=== PATIENT | male | born 1990 ===

== ENCOUNTER 2016-05-11 18:49 | Inpatient (IN) | payer MEDICAID, OTHER ==
[2016-05-11 19:43] LABS: BASO % 0.6 % (0.0-2.0); EOS # 0.1 K/uL (0.0-0.7); HEMATOCRIT 39.8 % (35.0-51.0); LYMPH # 2.3 K/uL (1.0-4.3); LYMPH % 31.4 % (20.0-40.0); MEAN CELL VOLUME 72.9 fL (80.0-94.0); MEAN CORPUSCULAR HEMOGLOBIN 23.5 pg (27.0-31.0); MEAN CORPUSCULAR HGB CONC 32.2 g/dL (33.0-37.0); MEAN PLATELET VOLUME 8.5 fL (7.2-11.7); MONO # 0.8 K/uL (0.0-0.8); MONO % 11.2 % (0.0-10.0); RED CELL DISTRIBUTION WIDTH 14.3 % (11.5-14.5); WHITE BLOOD COUNT 7.2 K/uL (4.8-10.8)
[2016-05-11 19:45] LABS: RBC URINE < 1 /hpf (0-3); URINE BILIRUBIN NEGATIVE (NEGATIVE); URINE BLOOD NEGATIVE (NEGATIVE); URINE COLOR Yellow (YELLOW); URINE GLUCOSE (UA) NORMAL (Normal); URINE KETONE TRACE mg/dL (NEGATIVE); URINE LEUKOCYTE ESTERASE NEG Leu/uL (Negative); URINE PROTEIN NEGATIVE (NEGATIVE); URINE UROBILINOGEN NORMAL mg/dL (0.2-1.0); WBC URINE < 1 /hpf (0-5)
[2016-05-11 19:50] LABS: CHLORIDE 95 mmol/L (98-107)
[2016-05-11 19:51] LABS: POTASSIUM 3.6 mmol/L (3.6-5.2); SODIUM 136 mmol/L (132-148)
[2016-05-11 19:54] LABS: ALB/GLOB RATIO 1.2 (1.0-2.1); ALKALINE PHOSPHATASE 115 U/L (38-126); ALT/SGPT 34 U/L (21-72); AST/SGOT 30 U/L (17-59); BILIRUBIN,TOTAL 0.2 mg/dL (0.2-1.3); BLOOD UREA NITROGEN 14 mg/dL (9-20); CALCIUM 9.4 mg/dl (8.6-10.4); CARBON DIOXIDE 27 mmol/L (22-30); GFR AFRICAN-AMERICAN > 60; GLUCOSE,RANDOM 106 mg/dL (75-110)
[2016-05-11 19:55] LABS: ALCOHOL SERUM < 10 mg/dl (0-10)
--- NOTE | 2016-05-11 19:58 | C.PDOC ---
History Of Present Illness The patient, a 26 y/o male, presents to the ED requesting heroin detox. Patient states he has already been prescreened for detox. Patient states he normally uses around 20-25 bags/day and has been doing so for about 5 years. Patient states his last use was at 0700 today. Patient states he usually experiences abdominal pain, vomiting, diarrhea when he has not used heroin for a while, but denies such complaints at this time. He denies suicidal/homicidal ideation and has no other complaints at this time. Time Seen by Provider: 05/11/16 18:59 Chief Complaint (Nursing): Substance Abuse History Per: Patient History/Exam Limitations: intoxication Onset/Duration Of Symptoms: Hrs Current Symptoms Are (Timing): Still Present Suicide/Self Injury Attempted (Context): None Modifying Factor(s): Other (+heroin) Associated Symptoms: denies: Suicidal Thoughts, Suicidal Plan Involuntary Hold By: None Recent travel outside of the [place]: No Additional History Per: Patient Past Medical History Reviewed: Historical Data, Nursing Documentation, Vital Signs Vital Signs: Last Vital Signs Temp 99.2 F 05/11/16 18:51 Pulse 134 H 05/11/16 18:51 Resp 18 05/11/16 18:51 BP 140/80 05/11/16 18:51 Pulse Ox 99 05/11/16 20:04 - Medical History PMH: Denies: Diabetes, Hepatitis, HIV, HTN, Seizures, Sexually Transmitted Disease Surgical History: Appendectomy Family History: States: Unknown Family Hx - Social History Hx Alcohol Use: Yes Hx Substance Use: Yes - Immunization History Hx Tetanus Toxoid Vaccination: No Hx Influenza Vaccination: No Hx Pneumococcal Vaccination: No Review Of Systems Except As Marked, All Systems Reviewed And Found Negative. Gastrointestinal: Negative for: Vomiting, Abdominal Pain, Diarrhea Psych: Positive for: Other (request for heroin detox ). Negative for: Suicidal ideation Physical Exam - Physical Exam Appears: No Acute Distress Skin: Normal Color, Warm, Dry Head: Atraumatic, Normacephalic Eye(s): bilateral: Normal Inspection, EOMI Oral Mucosa: Moist Neck: Normal ROM, Supple Chest: Symmetrical, No Deformity, No Tenderness Cardiovascular: Rhythm Regular, No Murmur Respiratory: Normal Breath Sounds, No Rales, No Rhonchi, No Wheezing Extremity: Normal ROM, Capillary Refill (less than 2 seconds ) Neurological/Psych: Oriented x3 Gait: Steady ED Course And Treatment - Laboratory Results Result Diagrams: 05/11/16 19:37 05/11/16 19:37 Lab Interpretation: No Acute Changes (UDS + opiates) O2 Sat by Pulse Oximetry: 99 (on RA) Pulse Ox Interpretation: Normal Progress Note: labs were ordered and reviewed. Reevaluation Time: 20:04 Reassessment Condition: Unchanged Disposition - Disposition Disposition: HOSPITALIZED Disposition Time: 20:04 Condition: STABLE Forms: Accompanied To ED By: - Clinical Impression Clinical Impression: Opiate dependence, continuous - Scribe Statement The provider has reviewed the documentation as recorded by the Scribe (Kalpana Gorman) Provider Attestation: All medical record entries made by the Scribe were at my direction and personally dictated by me. I have reviewed the chart and agree that the record accurately reflects my personal performance of the history, physical exam, medical decision making, and the department course for this patient. I have also personally directed, reviewed, and agree with the discharge instructions and disposition.
[2016-05-11 22:02] VITALS: RESP 18
[2016-05-12] MEDS ORDERED: Buprenorphine Hydrochloride 2 mg SL ONE ×3 (07:32→15:35)
[2016-05-12 07:38] VITALS: O2SAT 100
[2016-05-12 15:28] VITALS: BP 110/70; PULSE 104; TEMP 97.8
--- NOTE | 2016-05-12 16:13 | PCM.PSYCH ---
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 Patient denied any psychiatric history. Heroin: Reported he started using heroin at the age of 20 years. Increased gradually, currently he was using 20-25 bags daily, IV. His last use of heroin was yesterday. Denied any previous detox or rehabs. There is no period of abstinence. Cannabis: Started using at the age of 15 years. Increased gradually , currently he was using 3 blunts daily. Last use was yesterday. Denied use of any other drugs including cocaine and alcohol. He smokes 2-1/2 packs of cigarettes daily. Requesting nicotine patch. Patient was born in [place]. Has 11th grade of education. 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 He is single and has 3 children from 2 different females. His 2 years and 4 years old children there with him and his girlfriend. Height is 5 feet 8 inches and weight is 156 pounds. Current Medications: Active Medications Generic Name Dose Route Start Last Admin Trade Name Freq PRN Reason Stop Dose Admin Acetaminophen 650 mg 05/11/16 21:51 05/12/16 08:23 Tylenol 325mg Tab PO 650 mg Q4H PRN Administration Fever greater than 101 F Clonidine HCl 0.1 mg 05/11/16 21:51 05/12/16 07:59 Catapres PO 0.1 mg Q8 PRN Administration COWS Score More or Equal to 5 Dicyclomine HCl 10 mg 05/12/16 08:27 Bentyl PO Q6 PRN Muscle spasm Gabapentin 300 mg 05/12/16 14:00 05/12/16 14:06 Neurontin PO 300 mg TID KRIS Administration Hydroxyzine HCl 25 mg 05/11/16 21:53 05/12/16 07:59 Atarax PO 25 mg Q6 PRN Administration Agitation Ibuprofen 600 mg 05/12/16 13:58 05/12/16 14:04 Motrin Tab PO 600 mg Q6 PRN Administration moderate pain Loperamide HCl 2 mg 05/11/16 21:51 Imodium PO Q8 PRN Diarrhea Nicotine 1 patch 05/12/16 10:00 05/12/16 10:57 Nicoderm Cq TD 1 patch DAILY KRIS Administration Ondansetron HCl 4 mg 05/11/16 21:51 Zofran Tab PO Q8 PRN Nausea/Vomiting Promethazine HCl 25 mg 05/11/16 21:51 Phenergan Inj IM QID PRN Nausea/Vomiting, Unable PO Trazodone HCl 50 mg 05/11/16 22:00 05/11/16 22:10 Desyrel PO Not Given HS KRIS Past Psychiatric History - Past Psychiatric History Previous Treatment History: None History of Abuse: None reported History of ETOH/Drug Use: See HPI History of Family Illness: None reported Pertinent Medical Hx (Current Medical&Sleep Prob, Allergies): Allergies Allergy/AdvReac Type Severity Reaction Status Date / Time seafood Allergy SHORTNESS Uncoded 05/11/16 18:56 OF BREATH No Known Home Med 12/22/15 Review of Systems - Psychiatric Psychiatric: Other Mental Status Examination - Personal Presentation Personal Presentation: Looks stated age - Affect Affect: Depressed - Motor Activity Motor Activity: Calm - Reliability in Providing Information Reliability in Providing Information: Fair - Speech Speech: Organized - Mood Mood: Depressed - Formal Thought Process Formal Thought Process: No Impairment - Hallucinations/Delusions Hallucinations: Other (None reported) Delusions: Other - Obsessions/Compulsions Obsessions: None Compulsions: None - Cognitive Functions Orientation: Person, Place, Situation, Time Sensorium: Alert Attention/Concentration: Attentive Abstract Thinking: [place] Estimate of Intelligence: Average Judgement: Intact, as evidence by: Insight regarding need for hospitalization Memory: Recent intact, as evidence by: Other, Remote intact, as evidenced by: Ability to recall historical events - Risk Risk: Withdrawal, Diminished functioning - Strength & Assets Inventory Strength & Assets Inventory: Employment history, Cooperative - Limitations Limitations: Other DSM 5 DX - DSM 5 DSM 5 Diagnosis: Opiate use disorder severe Cannabis use disorder severe - Recommended/Plan of Treatment Treatment Recommendations and Plan of Treatment: Patient education Supportive therapy [place] intervention We will start Subutex taper for opiate withdrawal symptoms Other when necessary medications If needed will provide extra dose of Subutex Patient doesn't want to go to any program after discharge from the hospital Projected ELOS: 4-5 days - Smoking Cessation Smoking Cessation Initiated: Yes
== END 2016-05-12 16:15 | disposition left against medical advice (07) | DRG 743 ==
LOC: C.ER 18:49 → C.7D 20:38
PROVIDERS: ADMIT Psychiatry & Neurology Psychiatry; ATTEND Psychiatry & Neurology Psychiatry
DX: F11.20 Opioid dependence, uncomplicated (principal); F17.210 Nicotine dependence, cigarettes, uncomplicated; F12.90 Cannabis use, unspecified, uncomplicated